=== PATIENT | female | born 1970 | race African-American/Black ===

== ENCOUNTER 2018-08-17 08:04 | Emergency (ER) | payer BC ==
[~2018-08-17] VITALS: Ht 157.5 cm; Wt 90.7 kg
[2018-08-17 08:08] VITALS: BP_SYST 137
--- NOTE | 2018-08-17 08:12 | NUR ---
Patient to ER bed 5 to gown for evaluation. Side rails up. Report given to Mildred LOBO.
--- NOTE | 2018-08-17 08:17 | NUR ---
patient AOx4 from home with c/o head and neck pain s/p mechanical fall. patient was in the shower, slipped and fell getting out. patient has a stable gait, equal strength to all extremities and denies blured vision, acuity changes. patient states she is nauseous. patient denies KO, vomiting, drug or ETOH use. no other complaint or injury at this time.
--- NOTE | 2018-08-17 08:30 | NUR ---
patient states she had a full hysterectomy.
--- NOTE | 2018-08-17 08:55 | NUR ---
ER at bedside examining patient.
[2018-08-17 09:52] VITALS: BP_SYST 130
--- NOTE | 2018-08-17 09:52 | NUR ---
Patient given written and verbal discharge instructions and verbalizes understanding. ER MD discussed with patient the results and treatment provided. Patient in stable condition. ID arm band removed. Zero Rx given. Patient educated on pain management and to follow up with PMD. Pain Scale 0/10. Opportunity for questions provided and answered. Medication side effect fact sheet provided.
== END 2018-08-17 09:52 | disposition home or self-care (01) ==
LOC: SED 08:04
DX: S13.4XXA Sprain of ligaments of cervical spine, initial encounter (principal); S00.83XA Contusion of other part of head, initial encounter; S03.2XXA Dislocation of tooth, initial encounter; K21.9 Gastro-esophageal reflux disease without esophagitis; Z86.19 Personal history of other infectious and parasitic diseases; Z88.1 Allergy status to other antibiotic agents; Z88.2 Allergy status to sulfonamides; W01.198A Fall on same level from slipping, tripping and stumbling with subsequent striking against other object, initial encounter; Y93.89 Activity, other specified; Y92.89 Other specified places as the place of occurrence of the external cause; Y99.8 Other external cause status
CPT/HCPCS: 70450-TC; 72125-TC; 99284

== ENCOUNTER 2018-09-23 20:58 | Emergency (ER) | payer BC ==
[~2018-09-23] VITALS: Ht 157.5 cm; Wt 95.3 kg
[2018-09-23 21:04] VITALS: BP_SYST 157
[2018-09-23] MEDS ORDERED: NACL 0.9% 1,000 ML IV ONE (21:21)
[2018-09-23] MEDS ORDERED: ONDANSETRON HCL 4 MG/2 ML VIAL IVP ONE (21:30)
[2018-09-23] MEDS ORDERED: MORPHINE 4 MG/ML INJ. SYRINGE IVP ONE (21:30)
[2018-09-23 21:37] LABS: BASOPHILS % (AUTO) 0.3 % (0.0-2.0); EOSINOPHILS # (AUTO) 0.3 K/uL (0.0-0.4); EOSINOPHILS % (AUTO) 3.5 % (0.0-4.0); HEMOGLOBIN 12.1 g/dL (12.0-16.0); LYMPHOCYTES # (AUTO) 3.8 K/uL (1.0-5.5); LYMPHOCYTES % (AUTO) 44.5 % (20.5-51.5); MEAN CORPUSCULAR HEMOGLOBIN 28 pg (27-31); MEAN CORPUSCULAR HGB CONC 34 % (32-36); MEAN CORPUSCULAR VOLUME 82 fL (79.0-98.0); MONOCYTES # (AUTO) 0.4 K/uL (0.0-1.0); MONOCYTES % (AUTO) 4.3 % (1.7-9.3); NEUTROPHILS # (AUTO) 4.1 K/uL (1.8-7.7); NEUTROPHILS % (AUTO) 47.4 % (40.0-70.0); PLATELET COUNT (AUTO) 293 K/uL (130-430); RED BLOOD CELL COUNT(AUTO) 4.39 MIL/uL (4.2-6.2); RED CELL DISTRIBUTION WIDTH 13.9 % (9.0-15.0); WHITE BLOOD COUNT (AUTO) 8.6 K/uL (4.8-10.8)
[2018-09-23 21:50] LABS: INR 0.9 (0.8-1.2); PROTHROMBIN TIME 9.2 SECS (9.5-12.5)
[2018-09-23 21:53] LABS: ALBUMIN 3.5 g/dL (3.4-4.8); CALCIUM 9.5 mg/dL (8.4-11.0); CREATININE 0.99 mg/dL (0.55-1.30); POTASSIUM 3.8 mmol/L (3.5-5.1); TOTAL BILIRUBIN 0.4 mg/dL (0.0-1.0)
[2018-09-24] MEDS ORDERED: MAG HYDROX/AL HYDROX/SIMETH 30 ML, LIDOCAINE VISCOUS 2% 15ML (PO) 10 ML, DICYCLOMINE HC... PO ONE ×3 (00:15)
[2018-09-24 01:11] VITALS: BP_SYST 131
== END 2018-09-24 01:11 | disposition home or self-care (01) ==
LOC: SED 20:58
DX: K52.9 Noninfective gastroenteritis and colitis, unspecified (principal); K21.9 Gastro-esophageal reflux disease without esophagitis; Z86.19 Personal history of other infectious and parasitic diseases; Z88.1 Allergy status to other antibiotic agents; Z88.2 Allergy status to sulfonamides
CPT/HCPCS: 36415; 74176; 80053; 82150; 83690; 85025; 85610; 96361; 96374; 96375; 99284; J2001; J2270; J2405; J7030

== ENCOUNTER 2019-10-02 09:59 | Observation (INO) | payer BC ==
[~2019-10-02] VITALS: Ht 157.5 cm; Wt 102.1 kg
[2019-10-02 10:15] VITALS: BP_SYST 156
--- NOTE | 2019-10-02 10:15 | NUR ---
Patient to ER bed 2 to gown for evaluation. Side rails up.
--- NOTE | 2019-10-02 10:16 | NUR ---
Patient arrived in the ED c/o abdominal pain, nausea, dry heaving, diarrhea for the last 4 days. Denied any chest pain or shortness of breath. Denied any fevers and chills. Patient is alert and oriented x4, respirations even and unlabored, speaking in full sentences, and ambulating with a steady gait. VSS, pain level 10/10. Informed of the approximate wait time. Instructed to notify ED staff for any changes in condition or worsening of symptoms while waiting to be seen by an ED provider. Patient verbalized understanding.
--- NOTE | 2019-10-02 10:20 | NUR ---
# 20 gauge angiocath placed to RAC using asceptic technique per facility protocol. Opsite placed over site. Blood return noted. Flushed with 10 mL of sterile normal saline. No evidence of infiltration noted. Patient tolerated well.
[2019-10-02] MEDS ORDERED: NACL 0.9% 1,000 ML IV ONE (10:34)
--- NOTE | 2019-10-02 10:41 | NUR ---
ER Dr. Trejo at bedside examining patient.
[2019-10-02] MEDS ORDERED: MORPHINE 4 MG/ML INJ. SYRINGE IVP ONE ×2 (10:45→12:15)
--- NOTE | 2019-10-02 10:50 | NUR ---
Administered Morphine Sulfate IVP as ordered by Dr. Trejo. Patient tolerated the medications well. See eMAR for details.
[2019-10-02 11:14] LABS: BASOPHILS % (AUTO) 0.3 % (0.0-2.0); EOSINOPHILS # (AUTO) 0.2 K/uL (0.0-0.4); EOSINOPHILS % (AUTO) 2.1 % (0.0-4.0); HEMOGLOBIN 12.8 g/dL (12.0-16.0); LYMPHOCYTES # (AUTO) 2.5 K/uL (1.0-5.5); LYMPHOCYTES % (AUTO) 28.3 % (20.5-51.5); MEAN CORPUSCULAR HEMOGLOBIN 28 pg (27-31); MEAN CORPUSCULAR HGB CONC 34 % (32-36); MEAN CORPUSCULAR VOLUME 82 fL (79.0-98.0); MONOCYTES # (AUTO) 0.4 K/uL (0.0-1.0); MONOCYTES % (AUTO) 4.1 % (1.7-9.3); NEUTROPHILS # (AUTO) 5.8 K/uL (1.8-7.7); NEUTROPHILS % (AUTO) 65.2 % (40.0-70.0); PLATELET COUNT (AUTO) 220 K/uL (130-430); RED BLOOD CELL COUNT(AUTO) 4.62 MIL/uL (4.2-6.2); RED CELL DISTRIBUTION WIDTH 14.2 % (9.0-15.0)
[2019-10-02 11:22] LABS: CALCIUM 9.3 mg/dL (8.4-11.0); CREATININE 0.76 mg/dL (0.55-1.30)
[2019-10-02 11:27] LABS: ALBUMIN 3.9 g/dL (3.4-4.8); TOTAL BILIRUBIN 0.4 mg/dL (0.0-1.0)
[2019-10-02] MEDS ORDERED: metroNIDAZOLE 500 mg/NS 100 ML IV ONE (12:00)
[2019-10-02] MEDS ORDERED: LEVOFLOXACIN 500 MG/D5W 100 ML IV ONE (12:00)
[2019-10-02 12:33] LABS: BILIRUBIN,URINE NEGATIVE (NEGATIVE); BLOOD, URINE NEGATIVE (NEGATIVE); CLARITY/URINE CLEAR (CLEAR); COLOR,URINE YELLOW (YELLOW); GLUCOSE,URINE NEGATIVE (NEGATIVE); KETONES,URINE NEGATIVE (NEGATIVE); LEUKOCYTE ESTERASE ,URINE NEGATIVE (NEGATIVE); NITRITE, URINE NEGATIVE (NEGATIVE); PROTEIN URINE NEGATIVE (NEGATIVE); UROBILINOGEN,URINE 0.2 (0.2-1.0)
[2019-10-02] MEDS ORDERED: LACT1CAP79 PO (12:37)
[2019-10-02] MEDS ORDERED: OMEP20CA4 PO (12:37)
[2019-10-02] MEDS ORDERED: IBUP-1971 PO (12:37)
--- NOTE | 2019-10-02 12:39 | NUR ---
REASESSMENT; PATIENT STATES ABDOMINAL PAIN REMAINS; ERMD ADVISED; OTHERWISE SEDATE AND UNCHANGED; DISPOSITION PENDING
[2019-10-02] MEDS ORDERED: MORPHINE 4 MG/ML INJ. SYRINGE IVP PRN (12:45)
[2019-10-02] MEDS ORDERED: MORPHINE 2 MG/ML INJ. SYRINGE IVP PRN (12:45)
[2019-10-02] MEDS ORDERED: ACETAMINOPHEN 325 MG TABLET PO PRN (12:45)
[2019-10-02] MEDS ORDERED: ONDANSETRON HCL 4 MG/2 ML VIAL IVP PRN (12:45)
[2019-10-02] MEDS ORDERED: METOCLOPRAMIDE HCL 10 MG/2 ML VIAL IVP PRN (12:45)
[2019-10-02] MEDS: metroNIDAZOLE 500 mg/NS 100 ML IV SCH ×2 (13:00→20:39)
--- NOTE | 2019-10-02 13:07 | NUR ---
Administered MOrphine Sulfate IVP as ordered by Dr. Trejo. Patient tolerated the medications well. See eMAR for details.
--- NOTE | 2019-10-02 14:16 | NUR ---
Administered Flagy and Levaquin IVPB as ordered by Dr. Trejo. Patient tolerated the medications well. See eMAR for details.
--- NOTE | 2019-10-02 15:30 | NUR ---
Patient is resting comfortably in bed, respirations even and unlabored, speaking in full sentences.
--- NOTE | 2019-10-02 15:58 | NUR ---
Medication reconciliation done.
[2019-10-02] MEDS: D5NS 1,000 ML IV SCH ×2 (16:57→20:37)
--- NOTE | 2019-10-02 17:09 | NUR ---
Patient is resting comfortably in bed, respirations even and unlabored. Speaking in full sentences.
--- NOTE | 2019-10-02 17:23 | NUR ---
Patient will be admitted to care of Dr. Gallagher. Admitted to Medsurg unit. Will go to room 108B. Belongings list completed. Complete and up to date summary report printed. SBAR report to be given at bedside with opportunity for questions.
[2019-10-02 17:30] VITALS: BP_SYST 153
--- NOTE | 2019-10-02 17:30 | NUR ---
ADMISSION NOTE RECEIVED PT VIA NU BY ER STAFF. PT AOX4, COMPLAINING OF NAUSEA. PT HAD ONE EPISODE OF CLEAR EMESIS. PT STATES SHE FEELS BETTER WHEN SHE STAYS STILL. ASSISTED PT WITH REPOSITIONING, PT TOLERATED WELL. IVF INFUSING WELL. CALL LIGHT WITHIN REACH, BED IN LOW AND LOCKED POSITION. EDUCATED PT ON SAFETY AND USE OF BED ALARM, PT VERBALIZED UNDERSTANDING, PT REFUSING BED ALARM AT THIS TIME.
--- NOTE | 2019-10-02 17:54 | NUR ---
CONSULTATION PAGED REASON FOR CONSULTATION:ABDOMINAL PAIN WAS CONSULT CALLED?Y PERSON WHO WAS NOTIFIED:TOMMY RUBIO CONSULTING PHYSICIAN:MICHAEL RUBIO INTERNAL MEDICINE SPECIALIST SPECIALTYSURGEON: INTERNAL MEDICINE SPECIALIST PHONE NUMBER: ORDERING PHYSICIAN:TAZ TEJEDA
[2019-10-02 18:05] VITALS: BP_SYST 153
--- NOTE | 2019-10-02 18:38 | NUR ---
CLOSING NOTE PT RESTING AT THIS TIME, NO ACUTE DISTRESS NOTED, BREATHING EVEN AND UNLABORED. IVF INFUSING WELL. CALL LIGHT WITHIN REACH, BED IN LOW AND LOCKED POSITION. ALL NEEDS MET THROUGHOUT SHIFT. WILL CONTINUE TO MONITOR UNTIL PT CARE IS ENDORSED TO SHEET METAL SHOP SUPERVISOR RN.
--- NOTE | 2019-10-02 19:20 | NUR ---
OPENING NOTE/ANXIETY: Patient had an episode of anxiety at this time. Patient stated, "I feel like I cannot breathe with this mask and I do not like being in the room. I feel claustrophobic. I need to go home. I have felt this pain in my stomach before and I am sure I can manage it at home with over the counter medications. I have never felt anxious and I have been hospitalized multiple times and have never felt like this. I want to go home. Ask the doctor if they can discharge me." Patient was encouraged to practice relaxation techniques such as deep breathing which she properly demonstrated. We walked around the unit to give her a sense of "fresh air". Patient walked around unit with a steady gait and no assistance. Patient again started to cry and feel anxious. I educated the patient on anti-anxiety medications and possibly switching her rooms to encourage her to stay. Patient stated "I don't care I would like to leave AMA and be in my own room." Patient was educated that if she left AMA she would possibly be responsible for the hospital costs as insurance companies may not cover the visit. I encouraged the patient to find out and call her insurance before making a decision. Patient was escorted back to bed but encouraged to walk around the unit if this eased her mind. She also was encouraged to call a supportive family member or friend to help calm her down while I called the doctor. Dr. Pryor was paged at this time. Awaiting a call back. Patient without s/s of acute distress. Vital signs are stable. Breathing is even and unlabored. IVF are infusing well without s/s of infiltration, infection, or redness. Bed locked in lowest position, call light with patient. Patient educated on importance and use of call light. Patient verbalized understanding and demonstrated proper use. Will continue to monitor.
[2019-10-02 20:00] VITALS: BP_SYST 143
--- NOTE | 2019-10-02 20:20 | NUR ---
SPOKE WITH DR. MIR: Dr. Mir did not give orders to discharge the patient. She stated, "Patient can leave AMA if she would like but I cannot discharge her." I let Dr. Mir that I would re-educate the patient about the importance of staying here in the hospital to receive care. Patient was educated that she would not be discharged and could leave AMA. Patient then stated she would like to take an anti-anxiety medication to help her calm down. Dr. Mir was paged. No orders given. New orders carried out accordingly. Patient educated on side effects of Xanax tolerated well, and verbalized understanding. No s/s of acute distress noted. Patient educated to use call light. Bed locked in lowest position, call light with patient. Will continue to monitor.
[2019-10-02] MEDS ORDERED: ALPRAZolam 0.25 MG TABLET PO PRN (20:30)
--- NOTE | 2019-10-02 21:15 | NUR ---
ROUNDS: Patient is no longer anxious. Patient is resting in bed. No s/s of acute distress. Breathing is even and unlabored. Bed locked in lowest position, call light with patient. No further needs. Will continue to monitor.
--- NOTE | 2019-10-02 23:40 | NUR ---
ROUNDS: Patient is asleep at this time. No s/s of acute distress. Breathing is even and unlabored. Bed locked in lowest position, call light with patient. Will continue to monitor.
[2019-10-03] VITALS: BP_SYST 116
--- NOTE | 2019-10-03 01:49 | NUR ---
ROUNDS: Patient is sleeping at this time. No s/s of acute distress noted. Breathing is even and unlabored. No further needs at this time. Bed locked in lowest position, call light with patient. Will continue to monitor.
[2019-10-03] MEDS: D5NS 1,000 ML IV SCH ×2 (04:19→12:12)
[2019-10-03] MEDS: metroNIDAZOLE 500 mg/NS 100 ML IV SCH ×2 (04:19→12:12)
[2019-10-03 06:16] LABS: BASOPHILS % (AUTO) 0.2 % (0.0-2.0); EOSINOPHILS # (AUTO) 0.1 K/uL (0.0-0.4); HEMATOCRIT 34.4 % (36-48); HEMOGLOBIN 11.7 g/dL (12.0-16.0); LYMPHOCYTES # (AUTO) 2.2 K/uL (1.0-5.5); LYMPHOCYTES % (AUTO) 29.4 % (20.5-51.5); MEAN CORPUSCULAR HEMOGLOBIN 28 pg (27-31); MEAN CORPUSCULAR HGB CONC 34 % (32-36); MEAN CORPUSCULAR VOLUME 83 fL (79.0-98.0); MONOCYTES # (AUTO) 0.4 K/uL (0.0-1.0); NEUTROPHILS # (AUTO) 4.8 K/uL (1.8-7.7); NEUTROPHILS % (AUTO) 64.4 % (40.0-70.0); PLATELET COUNT (AUTO) 184 K/uL (130-430); RED BLOOD CELL COUNT(AUTO) 4.17 MIL/uL (4.2-6.2); RED CELL DISTRIBUTION WIDTH 14.2 % (9.0-15.0); WHITE BLOOD COUNT (AUTO) 7.4 K/uL (4.8-10.8)
[2019-10-03 06:24] LABS: ALBUMIN 3.1 g/dL (3.4-4.8); CALCIUM 8.3 mg/dL (8.4-11.0); CREATININE 0.8 mg/dL (0.55-1.30); POTASSIUM 3.5 mmol/L (3.5-5.1); TOTAL BILIRUBIN 0.4 mg/dL (0.0-1.0)
--- NOTE | 2019-10-03 06:27 | NUR ---
CLOSING NOTE: Patient is asleep at this time. No s/s of acute distress noted. Breathing is even and unlabored. IVF are infusing well. IV site is patent without s/s of infection, infiltration, or redness. All safety precautions maintained throughout the shift. All needs met throughout the shift. Will continue to monitor until endorsement of care to dayshift nurse.
[2019-10-03 08:00] VITALS: BP_SYST 105
[2019-10-03] MEDS ORDERED: LEVOFLOXACIN 500 MG/D5W 100 ML IV SCH (09:00)
[2019-10-03 11:37] VITALS: BP_SYST 124
[2019-10-03] MEDS ORDERED: GENTAMICIN SULFATE 200 MG in NS 100 ML IV ONE (12:00)
[2019-10-03 16:04] VITALS: BP_SYST 126
[2019-10-03] MEDS ORDERED: METR500T PO (16:05)
[2019-10-03] MEDS ORDERED: DOXY100C2 PO (16:05)
--- NOTE | 2019-10-03 18:00 | NUR ---
Patient tolerates soft diet well. Pepe Man RN
--- NOTE | 2019-10-03 18:45 | NUR ---
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 Patient verbalizes understanding of teaching. Pepe Man RN
== END 2019-10-03 18:45 | disposition home or self-care (01) ==
LOC: SED 09:59 → SMU 12:35
PROVIDERS: ADMIT Internal Medicine Hospice and Palliative Medicine; ATTEND Internal Medicine Hospice and Palliative Medicine
DX: K57.32 Diverticulitis of large intestine without perforation or abscess without bleeding (principal); E11.9 Type 2 diabetes mellitus without complications; I10 Essential (primary) hypertension; K21.9 Gastro-esophageal reflux disease without esophagitis; R11.2 Nausea with vomiting, unspecified; R19.7 Diarrhea, unspecified; Z79.899 Other long term (current) drug therapy; Z90.710 Acquired absence of both cervix and uterus
CPT/HCPCS: 36415 ×2; 74176; 80053 ×2; 81003; 85025 ×2; 96361 ×2; 96365; 96366 ×2; 96367 ×2; 96375; 96376; 99285; G0378; J1580; J1956; J2270; J2765; J3490; J7030; J7042 ×2

== ENCOUNTER 2020-09-22 17:47 | Emergency (ER) | payer BC ==
[~2020-09-22] VITALS: Ht 157.5 cm; Wt 88.5 kg
[~2020-09-22 17:47] MED LIST: DOXY100C2 PO; LACT1CAP79 PO; METR500T PO; OMEP20CA4 PO
[2020-09-22 18:15] VITALS: BP_SYST 139
[2020-09-22 18:52] LABS: BASOPHILS % (AUTO) 0.2 % (0.0-2.0); EOSINOPHILS # (AUTO) 0.2 K/uL (0.0-0.4); EOSINOPHILS % (AUTO) 2.6 % (0.0-4.0); HEMATOCRIT 36.2 % (36-48); LYMPHOCYTES % (AUTO) 38.4 % (20.5-51.5); MEAN CORPUSCULAR HEMOGLOBIN 28 pg (27-31); MEAN CORPUSCULAR HGB CONC 33 % (32-36); MEAN CORPUSCULAR VOLUME 83 fL (79.0-98.0); MONOCYTES # (AUTO) 0.4 K/uL (0.0-1.0); MONOCYTES % (AUTO) 5.1 % (1.7-9.3); NEUTROPHILS # (AUTO) 4.2 K/uL (1.8-7.7); NEUTROPHILS % (AUTO) 53.7 % (40.0-70.0); PLATELET COUNT (AUTO) 214 K/uL (130-430); RED BLOOD CELL COUNT(AUTO) 4.35 MIL/uL (4.2-6.2); WHITE BLOOD COUNT (AUTO) 7.9 K/uL (4.8-10.8)
[2020-09-22] MEDS ORDERED: KETOROLAC TROMETHAMINE 30 MG VIAL IM ONE (19:00)
[2020-09-22 19:10] LABS: CALCIUM 9.3 mg/dL (8.4-11.0); CREATININE 0.82 mg/dL (0.55-1.30); POTASSIUM 3.5 mmol/L (3.5-5.1)
[2020-09-22 19:12] LABS: C-REACTIVE PROTEIN QUANT 2.7 mg/dL (0-0.5)
[2020-09-22 19:14] LABS: PROTHROMBIN TIME 9.9 SECS (9.5-12.5)
[2020-09-22 19:17] LABS: ALBUMIN 3.9 g/dL (3.4-4.8); TOTAL BILIRUBIN 0.4 mg/dL (0.0-1.0)
[2020-09-22] MEDS ORDERED: IBUP-1969 PO (20:13)
[2020-09-22] MEDS ORDERED: HYDR-3917 PO (20:13)
[2020-09-22 20:22] VITALS: BP_SYST 139
== END 2020-09-22 20:23 | disposition home or self-care (01) ==
LOC: SED 17:47
DX: R10.2 Pelvic and perineal pain (principal); K21.9 Gastro-esophageal reflux disease without esophagitis; Z88.2 Allergy status to sulfonamides; Z88.8 Allergy status to other drugs, medicaments and biological substances
CPT/HCPCS: 36415; 74176; 76376; 80053; 81025; 82150; 83605; 83690; 84703; 85025; 85610; 85730; 86140; 96372; 99284; J1885

== ENCOUNTER 2020-12-29 20:03 | Observation (INO) | payer BC, SELFPAY ==
[~2020-12-29] VITALS: Ht 157.5 cm; Wt 81.6 kg
[~2020-12-29 20:03] MED LIST changes: -DOXY100C2 PO; +DOXY100C5 PO; +HYDR-3917 PO; +IBUP-1969 PO
[2020-12-29 20:09] VITALS: BP_SYST 148
--- NOTE | 2020-12-29 20:37 | NUR ---
PT TO BED 7 FOR EVALUATION.
--- NOTE | 2020-12-29 20:45 | NUR ---
Dr. Ricardo bedside for pt eval
[2020-12-29] MEDS ORDERED: NITROGLYCERIN LINGUAL 400 mCg/SPRAY TL ONE (21:00)
[2020-12-29] MEDS ORDERED: ASPIRIN 81 MG TAB.CHEW PO ONE (21:00)
--- NOTE | 2020-12-29 21:02 | NUR ---
Nitro spray well tolerated
--- NOTE | 2020-12-29 21:06 | NUR ---
Pt BIB family to ED with no cardiac history presents with nonprovoked onset of 6/10 pressure-like left-sided chest pain, nonradiating, off and on since onset, occurred while at rest. Symptoms are associated with diaphoresis and subjective shortness of breath, no nausea vomiting, no syncope. Patient called her doctor on the phone to describe her symptoms who directed her to the ED for evaluation
[2020-12-29 21:14] LABS: BASOPHILS % (AUTO) 0.2 % (0.0-2.0); EOSINOPHILS # (AUTO) 0.2 K/uL (0.0-0.4); EOSINOPHILS % (AUTO) 2.5 % (0.0-4.0); HEMATOCRIT 33.5 % (36-48); HEMOGLOBIN 11.5 g/dL (12.0-16.0); LYMPHOCYTES # (AUTO) 3.2 K/uL (1.0-5.5); LYMPHOCYTES % (AUTO) 39.2 % (20.5-51.5); MEAN CORPUSCULAR HEMOGLOBIN 29 pg (27-31); MEAN CORPUSCULAR HGB CONC 34 % (32-36); MEAN CORPUSCULAR VOLUME 84 fL (79.0-98.0); MONOCYTES # (AUTO) 0.4 K/uL (0.0-1.0); MONOCYTES % (AUTO) 4.4 % (1.7-9.3); NEUTROPHILS # (AUTO) 4.4 K/uL (1.8-7.7); NEUTROPHILS % (AUTO) 53.7 % (40.0-70.0); PLATELET COUNT (AUTO) 204 K/uL (130-430); RED BLOOD CELL COUNT(AUTO) 3.99 MIL/uL (4.2-6.2); RED CELL DISTRIBUTION WIDTH 14.6 % (9.0-15.0); WHITE BLOOD COUNT (AUTO) 8.1 K/uL (4.8-10.8)
[2020-12-29] MEDS ORDERED: NACL 0.9% 1,000 ML IV ONE (21:15)
[2020-12-29] MEDS ORDERED: ACETAMINOPHEN 500 MG TABLET PO ONE (21:15)
[2020-12-29 21:30] LABS: CREATININE 0.75 mg/dL (0.55-1.30); POTASSIUM 3.5 mmol/L (3.5-5.1)
[2020-12-29 21:36] LABS: ALBUMIN 3.5 g/dL (3.4-4.8); TOTAL BILIRUBIN 0.1 mg/dL (0.0-1.0)
--- NOTE | 2020-12-29 22:05 | NUR ---
VSS no s/s of acute distress Resting on gurney rails up
--- NOTE | 2020-12-29 23:11 | NUR ---
With family at bedside for emotional support
[2020-12-29] MEDS ORDERED: ALBUTEROL SULFATE 0.083% 2.5 MG/3 ML VIAL.NEB INH PRN (23:30)
[2020-12-29] MEDS ORDERED: HYDROcodone/ACETAMIN 5-325 MG TAB (NORCO/ VICODIN) PO PRN (23:30)
[2020-12-29] MEDS ORDERED: NALOXONE HCL 0.4 MG/ML AMP (NARCAN) IVP PRN (23:30)
[2020-12-29] MEDS ORDERED: MORPHINE 4 MG INJ. 4 MG/ML VIAL IVP PRN (23:30)
[2020-12-29] MEDS ORDERED: ACETAMINOPHEN 325 MG TABLET PO PRN (23:30)
--- NOTE | 2020-12-29 23:55 | NUR ---
PAGED FOR CONSULT ORDERING PHYSICIAN: REASON FOR CONSULT: CHEST PAIN DIALED: [phone] SPOKE TO: NIMESH
--- NOTE | 2020-12-30 | NUR ---
Patient will be admitted to care of Dr. Gallagher. Admitted to Tele unit. Will go to room 117B. Belongings list completed. Complete and up to date summary report printed. SBAR report to be given at bedside with opportunity for questions.
--- NOTE | 2020-12-30 | NUR ---
Transfer to Tele via ACLS protocol. Licensed nurse present. IV present no signs or symptoms of infiltration.
[2020-12-30 01:27] VITALS: BP_SYST 142
[2020-12-30 01:28] VITALS: BP_SYST 144
[2020-12-30 04:46] VITALS: BP_SYST 144
[2020-12-30 07:15] LABS: BASOPHILS % (AUTO) 0.3 % (0.0-2.0); EOSINOPHILS # (AUTO) 0.2 K/uL (0.0-0.4); EOSINOPHILS % (AUTO) 3.2 % (0.0-4.0); HEMATOCRIT 32.5 % (36-48); HEMOGLOBIN 10.9 g/dL (12.0-16.0); LYMPHOCYTES # (AUTO) 2.9 K/uL (1.0-5.5); LYMPHOCYTES % (AUTO) 45.8 % (20.5-51.5); MEAN CORPUSCULAR HEMOGLOBIN 29 pg (27-31); MEAN CORPUSCULAR HGB CONC 34 % (32-36); MEAN CORPUSCULAR VOLUME 85 fL (79.0-98.0); MONOCYTES # (AUTO) 0.3 K/uL (0.0-1.0); MONOCYTES % (AUTO) 5.1 % (1.7-9.3); NEUTROPHILS # (AUTO) 2.8 K/uL (1.8-7.7); NEUTROPHILS % (AUTO) 45.6 % (40.0-70.0); PLATELET COUNT (AUTO) 182 K/uL (130-430); RED BLOOD CELL COUNT(AUTO) 3.83 MIL/uL (4.2-6.2); RED CELL DISTRIBUTION WIDTH 14.9 % (9.0-15.0); WHITE BLOOD COUNT (AUTO) 6.2 K/uL (4.8-10.8)
[2020-12-30 07:41] LABS: ALANINE AMINOTRANSFERASE 21 U/L (12-78); ANION GAP 7 (5-15); ASPARTATE AMINOTRANSFERASE 14 U/L (10-37); CALCIUM 8.4 mg/dL (8.4-11.0); CHLORIDE 108 mmol/L (98-107); CREATININE 0.67 mg/dL (0.55-1.30); GLUCOSE 109 mg/dL (70-99); POTASSIUM 3.6 mmol/L (3.5-5.1); SODIUM SERUM 142 mmol/L (136-145); TOTAL BILIRUBIN 0.1 mg/dL (0.0-1.0); UREA NITROGEN, BLOOD 11 mg/dL (8-21)
[2020-12-30 08:46] LABS: GFR AFRICAN AMERICAN 119 mL/min (>90)
[2020-12-30] MEDS ORDERED: PANTOPRAZOLE SODIUM 40 MG TAB PO SCH (09:00)
[2020-12-30] MEDS ORDERED: ASPIRIN 325 MG TABLET PO SCH (09:00)
[2020-12-30 10:29] VITALS: BP_SYST 130
[2020-12-30 12:00] VITALS: BP_SYST 132
[2020-12-30 12:57] VITALS: BP_SYST 132
--- NOTE | 2020-12-30 16:48 | NUR ---
RN NOTES: PATIENT DISCHARGED. NOT IN DISTRESS. NOT IN PAIN. AMBULATORY. DISCHARGED STABLE.
== END 2020-12-30 17:19 | disposition home or self-care (01) ==
LOC: SED 20:03 → STU 22:14
PROVIDERS: ADMIT Internal Medicine Hospice and Palliative Medicine; ATTEND Internal Medicine Hospice and Palliative Medicine
DX: R07.89 Other chest pain (principal); Z20.822 Contact with and (suspected) exposure to COVID-19; K21.9 Gastro-esophageal reflux disease without esophagitis; E66.3 Overweight; Z87.19 Personal history of other diseases of the digestive system; Z90.710 Acquired absence of both cervix and uterus; Z79.899 Other long term (current) drug therapy
CPT/HCPCS: 36415 ×2; 71045; 80053 ×2; 83880; 84484 ×2; 85025 ×2; 87426; 93005; 93306; 96360; 99284; G0378 ×2; 99283

== ENCOUNTER 2021-08-20 17:23 | Emergency (ER) | payer BC ==
[~2021-08-20] VITALS: Ht 157.5 cm; Wt 86.2 kg
[2021-08-20 17:25] VITALS: BP_SYST 152
[2021-08-20 18:49] LABS: BASOPHILS % (AUTO) 0.3 % (0.0-2.0); EOSINOPHILS # (AUTO) 0.2 K/uL (0.0-0.4); EOSINOPHILS % (AUTO) 2.6 % (0.0-4.0); HEMATOCRIT 33.7 % (36-48); HEMOGLOBIN 11.4 g/dL (12.0-16.0); LYMPHOCYTES # (AUTO) 2.8 K/uL (1.0-5.5); MEAN CORPUSCULAR HEMOGLOBIN 28 pg (27-31); MEAN CORPUSCULAR HGB CONC 34 % (32-36); MEAN CORPUSCULAR VOLUME 82 fL (79.0-98.0); MONOCYTES # (AUTO) 0.3 K/uL (0.0-1.0); MONOCYTES % (AUTO) 5.2 % (1.7-9.3); NEUTROPHILS # (AUTO) 2.9 K/uL (1.8-7.7); NEUTROPHILS % (AUTO) 46.9 % (40.0-70.0); PLATELET COUNT (AUTO) 217 K/uL (130-430); RED BLOOD CELL COUNT(AUTO) 4.09 MIL/uL (4.2-6.2); RED CELL DISTRIBUTION WIDTH 14.2 % (9.0-15.0); WHITE BLOOD COUNT (AUTO) 6.2 K/uL (4.8-10.8)
[2021-08-20 19:33] LABS: ANION GAP 3 (5-15); CALCIUM 8.6 mg/dL (8.4-11.0); CHLORIDE 108 mmol/L (98-107); CREATININE 0.78 mg/dL (0.55-1.30); GLUCOSE 88 mg/dL (70-99); POTASSIUM 3.4 mmol/L (3.5-5.1); SODIUM SERUM 140 mmol/L (136-145); UREA NITROGEN, BLOOD 8 mg/dL (8-21)
[2021-08-20 19:35] LABS: GFR AFRICAN AMERICAN 100 mL/min (>90)
[2021-08-20 19:41] LABS: ALANINE AMINOTRANSFERASE 26 U/L (12-78); ALBUMIN 3.6 g/dL (3.4-4.8); ASPARTATE AMINOTRANSFERASE 16 U/L (10-37); PHOSPHORUS 3.6 mg/dL (2.7-4.5); TOTAL BILIRUBIN 0.2 mg/dL (0.0-1.0)
[2021-08-20 20:13] VITALS: BP_SYST 151
== END 2021-08-20 20:19 | disposition home or self-care (01) ==
LOC: SED 17:23
DX: R60.0 Localized edema (principal)
CPT/HCPCS: 36415; 71045; 80053; 83735; 83880; 84100; 84484; 85025; 93005; 99285

== ENCOUNTER 2023-07-25 15:27 | Emergency (ER) | payer BC ==
[~2023-07-25] VITALS: Ht 157.5 cm; Wt 104.3 kg
[2023-07-25 15:42] VITALS: BP_SYST 136; PULSE 90; RESP 18; TEMP 98.5; O2SAT 99
[2023-07-25] MEDS ORDERED: HYDROcodone/ACETAMIN 5-325 MG TAB (NORCO/ VICODIN) PO ONE (16:15)
[2023-07-25 16:51] LABS: BASOPHILS % (AUTO) 0.2 % (0.0-2.0); EOSINOPHILS # (AUTO) 0.2 K/uL (0.0-0.4); EOSINOPHILS % (AUTO) 2.9 % (0.0-4.0); HEMATOCRIT 34.5 % (36-48); HEMOGLOBIN 11.8 g/dL (12.0-16.0); LYMPHOCYTES # (AUTO) 2.8 K/uL (1.0-5.5); LYMPHOCYTES % (AUTO) 42.9 % (20.5-51.5); MEAN CORPUSCULAR HEMOGLOBIN 28 pg (27-31); MEAN CORPUSCULAR HGB CONC 34 % (32-36); MEAN CORPUSCULAR VOLUME 83 fL (79.0-98.0); MONOCYTES # (AUTO) 0.2 K/uL (0.0-1.0); MONOCYTES % (AUTO) 3.5 % (1.7-9.3); NEUTROPHILS # (AUTO) 3.3 K/uL (1.8-7.7); NEUTROPHILS % (AUTO) 50.5 % (40.0-70.0); PLATELET COUNT (AUTO) 226 K/uL (130-430); RED BLOOD CELL COUNT(AUTO) 4.17 MIL/uL (4.2-6.2); RED CELL DISTRIBUTION WIDTH 14.7 % (9.0-15.0); WHITE BLOOD COUNT (AUTO) 6.5 K/uL (4.8-10.8)
[2023-07-25 16:55] LABS: CREATININE 1.23 mg/dL (0.55-1.30); POTASSIUM 3.3 mmol/L (3.5-5.1)
[2023-07-25 17:28] LABS: CKMB RELATIVE INDEX 0.5 (0.0-2.9); CREATINE KINASE MB 1.2 ng/mL (0-3.6)
[2023-07-25] MEDS ORDERED: ZAN4 PO (17:43)
== END 2023-07-25 18:00 | disposition home or self-care (01) ==
LOC: SED 15:27
DX: M79.18 Myalgia, other site (principal); M79.661 Pain in right lower leg; M79.662 Pain in left lower leg; K21.9 Gastro-esophageal reflux disease without esophagitis; Z88.2 Allergy status to sulfonamides; Z88.1 Allergy status to other antibiotic agents; Z79.899 Other long term (current) drug therapy
CPT/HCPCS: 36415; 80048; 82550; 82553; 85025; 93970; 99284